=== PATIENT | female | born 1985 ===

== ENCOUNTER 2024-08-11 17:24 | Inpatient (IN) | payer MEDICARE, OTHER ==
[2024-08-11] VITALS (11 sets, daily range): BP systolic 119–205; BP diastolic 70–89; O2SAT 98
[~2024-08-11] VITALS: Ht 162.6 cm; Wt 67.2 kg
[2024-08-11] MEDS ORDERED: OXYTOCIN DRIP 30 UNITS in IV 1 EA IV PRN (17:30)
[2024-08-11] MEDS ORDERED: CARBOPROST TROMETHAMINE 250 MCG/ML AMP IM PRN (17:30)
[2024-08-11] MEDS ORDERED: OXYTOCIN INJ 10UNITS/ML 1ML VIAL IM PRN (17:30)
[2024-08-11] MEDS ORDERED: TRANEXAMIC ACID INJection 1,000 MG in NS 100 ML IV PRN (17:30)
[2024-08-11] MEDS ORDERED: OXYTOCIN INJ 10UNITS/ML 1ML VIAL IV PRN (17:30)
[2024-08-11] MEDS ORDERED: METHYLERGONOVINE MALEATE 0.2MG/ML 1ML VIAL IM PRN (17:30)
[2024-08-11] MEDS ORDERED: RHOGAM 300MCG (1500IU) INJ IM SCH (18:00)
[2024-08-11] MEDS ORDERED: METHYLERGONOVINE MALEATE 0.2 MG TAB PO PRN (18:00)
[2024-08-11] MEDS ORDERED: DIBUCAINE 1% OINTMENT 30GM TOP PRN (18:00)
[2024-08-11 18:06] LABS: HEMATOCRIT 33.8 % (36.0-47.0); HEMOGLOBIN 11.1 g/dl (12.0-15.5); MEAN CORPUSCULAR HEMOGLOBIN 26.8 pg (27.0-33.0); MEAN CORPUSCULAR HGB CONC 32.8 g/dl (32.0-36.5); MEAN CORPUSCULAR VOLUME 81.6 fl (80.0-96.0); PLATELET COUNT, AUTOMATED 276 10^3/uL (150-450); RED BLOOD COUNT 4.14 10^6/uL (4.00-5.40); WHITE BLOOD COUNT 10.2 10^3/uL (4.0-10.0)
[2024-08-11] MEDS: OXYTOCIN DRIP 30 UNITS in IV 1 EA IV PRN (18:19)
[2024-08-11 18:32] LABS: ALBUMIN 2.2 G/DL (3.2-5.2); ALKALINE PHOSPHATASE 231 U/L (46-116); ALT/SGPT 10 U/L (7.0-40); AST/SGOT 9 U/L (<34); BILIRUBIN,TOTAL 0.4 MG/DL (0.3-1.2); BLOOD UREA NITROGEN 13 MG/DL (9-23); CALCIUM LEVEL 9.4 MG/DL (8.5-10.1); CARBON DIOXIDE LEVEL 21 MMOL/L (20-31); CHLORIDE LEVEL 108 MMOL/L (98-107); CREATININE FOR GFR 0.58 MG/DL (0.55-1.30); GLOMERULAR FILTRATION RATE > 60.0 (>60); GLUCOSE, FASTING 93 MG/DL (60-100); POTASSIUM SERUM 4.3 MMOL/L (3.5-5.1); SODIUM LEVEL 138 MMOL/L (136-145); TOTAL PROTEIN 5.9 G/DL (5.7-8.2)
[2024-08-11] MEDS: IBUPROFEN 600MG TAB PO PRN (18:40)
[2024-08-11 18:58] LABS: HIV 1&2 SCREEN NEGATIVE (NEGATIVE)
[2024-08-11 19:06] LABS: HEPATITIS C VIRUS ABY INDEX < 0.02 INDEX (<0.8)
[2024-08-11 19:39] LABS: ALBUMIN 1.9 G/DL (3.2-5.2); ALKALINE PHOSPHATASE 210 U/L (46-116); ALT/SGPT < 9 U/L (7.0-40); AST/SGOT 10 U/L (<34); BILIRUBIN,TOTAL 0.3 MG/DL (0.3-1.2); BLOOD UREA NITROGEN 12 MG/DL (9-23); CALCIUM LEVEL 8.6 MG/DL (8.5-10.1); CARBON DIOXIDE LEVEL 26 MMOL/L (20-31); CHLORIDE LEVEL 109 MMOL/L (98-107); GLOMERULAR FILTRATION RATE > 60.0 (>60); GLUCOSE, FASTING 90 MG/DL (60-100); POTASSIUM SERUM 4.2 MMOL/L (3.5-5.1); SODIUM LEVEL 138 MMOL/L (136-145); TOTAL PROTEIN 5.5 G/DL (5.7-8.2)
[2024-08-12] MEDS: ACETAMINOPHEN 500 MG TAB PO PRN (00:46)
[2024-08-12 02:23] VITALS: BP 140/65; O2SAT 98
[2024-08-12] MEDS: DOCUSATE SODIUM 100MG CAPSULE PO PRN (06:12)
[2024-08-12 06:19] VITALS: BP 125/65; O2SAT 99
[2024-08-12 06:48] LABS: HEMATOCRIT 30.8 % (36.0-47.0); HEMOGLOBIN 9.8 g/dl (12.0-15.5); MEAN CORPUSCULAR HEMOGLOBIN 26.5 pg (27.0-33.0); MEAN CORPUSCULAR HGB CONC 31.8 g/dl (32.0-36.5); MEAN CORPUSCULAR VOLUME 83.2 fl (80.0-96.0); PLATELET COUNT, AUTOMATED 201 10^3/uL (150-450); WHITE BLOOD COUNT 11.7 10^3/uL (4.0-10.0)
[2024-08-12] MEDS: PRENATAL VITAMINS CHEWABLE TABLET PO SCH (07:41)
[2024-08-12 10:00] VITALS: BP 159/73; O2SAT 100
[2024-08-12 11:29] LABS: TOTAL PROTEIN,RANDOM URINE 22.8 MG/DL (0.0-14.0)
[2024-08-12 11:30] LABS: BARBITURATES URINE REFLEX NEGATIVE (NEGATIVE); BENZODIAZEPINES URINE REFLEX NEGATIVE (NEGATIVE)
[2024-08-12 11:31] LABS: METHADONE URINE REFLEX NEGATIVE (NEGATIVE); OPIATES URINE REFLEX NEGATIVE (NEGATIVE); PHENCYCLIDINE URINE REFLEX NEGATIVE (NEGATIVE)
[2024-08-12 11:33] LABS: CREATININE,RANDOM URINE 46.2 MG/DL
[2024-08-12 11:43] LABS: AMPHETAMINES URINE REFLEX PENDING CONFIRMATION (NEGATIVE); CANNABINOIDS URINE REFLEX PENDING CONFIRMATION (NEGATIVE); COCAINE METABOLITE URINE REFLE PENDING CONFIRMATION (NEGATIVE)
[2024-08-12 14:00] VITALS: BP 137/70; O2SAT 98
[2024-08-12 18:00] VITALS: BP_SYST 116; BP_SYST 131; BP_DIAS 69; BP_DIAS 73; O2SAT 96; O2SAT 99
[2024-08-12 21:55] VITALS: BP 124/60; O2SAT 98
[2024-08-13 01:46] VITALS: BP 139/77; O2SAT 98
[2024-08-13 05:52] VITALS: BP 147/72; O2SAT 97
[2024-08-13] MEDS ORDERED: NALOXONE 2MG/2ML SYRINGE PRN (07:55)
[2024-08-13] MEDS: MEASLES,MUMPS,RUBELLA VACCINE INJ (MMR-II) SC.IMMUN ONE (08:03)
[2024-08-13] MEDS: medroxyPROGESTERone ACET IM SUSP 150 MG/ML VIAL IM ONE (09:05)
[2024-08-17 02:09] LABS: Amphetamine Positive (.); Amphetamines Positive (.); BENZOYLECGONINE, CONF, MS,UR >3000 ng/mL (Cutoff=150); Cannabinoid Positive (.); Carboxy THC Conf, MS, UR 32 ng/mL (Cutoff=10); Cocaine Positive (.); GC Amphetamine 1494 ng/mL (Cutoff=500); GC Methamphetam >5000 ng/mL (Cutoff=500); Methamphetamine Positive (.)
== END 2024-08-13 10:15 | disposition home or self-care (01) | DRG 807 ==
LOC: M LDO 17:24 → M LDI 17:25 → M OBS 20:18
PROVIDERS: ADMIT Obstetrics & Gynecology; ATTEND Obstetrics & Gynecology
PROC: 10E0XZZ Delivery of Products of Conception, External Approach (ICD-10-PCS; principal; 2024-08-11)
DX: O62.3 Precipitate labor (principal); Z37.0 Single live birth; Z3A.37 37 weeks gestation of pregnancy